=== PATIENT | male | born 1970 | race American Indian/Alaskan Native ===

== ENCOUNTER → 2022-10-16 08:12 | Outpatient (CLI) | payer OTHER, SELFPAY ==
--- NOTE | 2022-10-16 | DI.RAD.S_ITS ---
PROCEDURE: XR KNEE LT 3V INDICATIONS: left lateral knee pain TECHNIQUE: 3 views of the knee were acquired. COMPARISON: [facility], MR, MR KNEE LT WO CON, 10/16/2022, 8:50. FINDINGS: Bones: No fractures or dislocations. No suspicious bony lesions. Mild tricompartmental osteoarthritis. Soft tissues: Small joint effusion. No suspicious soft tissue calcifications. IMPRESSION: 1. No acute osseous abnormality. 2. Mild osteoarthritis. 3. Small knee joint effusion. Dictated by: Kenisha Prado M.D. on 10/16/2022 at 11:23 Approved by: Kenisha Prado M.D. on 10/16/2022 at 11:25
--- NOTE | 2022-10-16 | DI.MRI.S_ITS ---
PROCEDURE: MR KNEE LT WO CON INDICATIONS: Pain in left knee TECHNIQUE: Noncontrast sagittal PD fast spin echo and T2 fast spin echo with fat saturation, sagittal 3-D FLASH with fat saturation; coronal T1 spin echo and PD fast spin echo with fat saturation, and axial PD fast spin echo with fat saturation through the knee. COMPARISON: [facility], CR, XR KNEE LT 3V, 10/16/2022, 9:18. FINDINGS: Image quality: Excellent. Menisci: Amorphous high signal intensity within the peripheral 3rd of the medial meniscal body and posterior horn is present demonstrating inferior articular surface extension, indicating degenerative tearing. There is an anteroposterior bucket-handle tear of the lateral meniscus. A portion of the posterior horn lateral meniscus has flipped anterior to the anterior horn lateral meniscus. Linear oblique and horizontal high signal intensity traverses the inner, middle, and peripheral thirds of the anterior horn lateral meniscus, demonstrating inferior articular surface extension. Cruciate ligaments: The anterior and posterior cruciate ligaments appear intact. Medial structures: The medial collateral ligament appears intact. Visualized portions of the pes anserinus tendons appear normal. Mild T2 signal elevation within the semimembranosus at the tibial insertion site. No abnormal bursal fluid. Lateral structures: The lateral collateral ligament, long and short heads of the biceps femoris tendon appear intact. The popliteus tendon appears normal. Iliotibial band appears normal. Anterior structures: The quadriceps and patellar tendons appear intact. Mild T2 signal elevation within the quadriceps and patellar tendons at the patellar insertion sites. Patellar alignment is normal. No femoral trochlear dysplasia or ventral trochlear prominence. No edema in the infrapatellar fat pad. Bones and cartilage: No bone marrow contusions or fractures. Mild articular cartilage loss diffusely overlies the weight-bearing aspects of the medial femoral condyle and medial tibial plateau. Articular cartilage fibrillation overlies the patellar apex. Joint space: There is a small knee joint effusion and a small Arango's cyst. Normal appearing synovial plicae are incidentally noted. IMPRESSION: 1. Medial and lateral meniscal tearing as described above. 2. Medial and patellofemoral compartment articular cartilage loss. 3. Mild quadriceps and patellar tendinopathy. 4. Knee joint effusion and Arango's cyst. 5. Semimembranosus tendinopathy. Dictated by: Stephen Forde M.D. on 10/16/2022 at 11:18 Approved by: Stephen Forde M.D. on 10/16/2022 at 11:23
== END ==
PROVIDERS: PCP Family Medicine; Referring Provider Family Medicine; Visit Provider Family Medicine
DX: M25.562 Pain in left knee (principal); M17.12 Unilateral primary osteoarthritis, left knee; M25.462 Effusion, left knee
CPT/HCPCS: 73562; 73721

== ENCOUNTER → 2023-03-05 09:50 | Outpatient (CLI) | payer OTHER, SELFPAY ==
--- NOTE | 2023-03-05 | DI.RAD.S_ITS ---
PROCEDURE: XR CHEST 2V INDICATIONS: Encounter for other administrative examinations TECHNIQUE: 2 views of the chest were acquired. COMPARISON: [facility], , CHEST 2 VIEW, 08/12/2016, 8:32. FINDINGS: Surgical changes and devices: None. Lungs and pleura: Lungs are clear. No pleural effusions or pneumothorax. Mediastinum: Mediastinal contours are normal. Heart size is normal. Bones and chest wall: No suspicious bony abnormalities. Soft tissues appear unremarkable. IMPRESSION: No acute cardiopulmonary process. Dictated by: James Austin M.D. on 03/05/2023 at 17:22 Approved by: James Austin M.D. on 03/05/2023 at 17:25
== END ==
PROVIDERS: PCP Family Medicine; Referring Provider Nurse Practitioner Family; Visit Provider Nurse Practitioner Family
DX: Z02.89 Encounter for other administrative examinations (principal)
CPT/HCPCS: 71046